=== PATIENT | female | born 1950 | race Caucasian/White ===

== ENCOUNTER 2017-12-11 04:14 | Inpatient (IN) | payer MEDICARE, BC ==
[2017-12-11] MEDS ORDERED: NS 0.9% 1000 ML* 1,000 ML IV ONE (04:33)
[2017-12-11] MEDS ORDERED: Ondansetron INJ* 2 MG/ML VIAL IV ONE (04:37)
[2017-12-11] MEDS ORDERED: fentaNYL* 50 MCG/ML 2 ML VIAL (100 MCG VIAL) IV SLOW PU ONE (04:37)
[2017-12-11] MEDS ORDERED: Ketorolac INJ* 30 MG/ML 1 ML VIAL IV PUSH ONE (04:37)
[2017-12-11] MEDS ORDERED: Albuterol/Ipratropium NEB.SOL* Albuterol 2.5 MG/Ipratropium 0.5 MG 3 ML INH ONE (04:37)
[2017-12-11] MEDS ORDERED: Levofloxacin 750 MG IVPREMIX(* 750 MG/150 ML BAG IVPB ONE (04:54)
[2017-12-11 05:30] LABS: ABS Basophils 0 10^3/ul (0-0.2); ABS Eosinophils 0 10^3/ul (0-0.6); ABS Monocytes 1.2 10^3/ul (0-0.8); ABS Neutrophils 7.6 10^3/ul (1.5-7.7); ABS Nucleated RBC 0 10^3/ul; Eosinophil % 0.4 % (0-6); Hematocrit 35 % (35-47); Hemoglobin 12.6 g/dl (12.0-16.0); Lymphocyte % 10.2 % (25-47); Mean Corpuscular HGB Conc 36 g/dl (31-36); Mean Corpuscular Hemoglobin 34 pg (27-31); Mean Corpuscular Volume 95 fL (80-97); Mean Platelet Volume 8.2 um3 (7.4-10.4); Nucleated Red Blood Cells % 0.1; Platelet Count 194 10^3/ul (150-450); Red Blood Count 3.74 10^6/ul (4.0-5.4); Red Cell Distribution Width 13 % (10.5-15); White Blood Count 9.8 10^3/ul (3.5-10.8)
[2017-12-11 05:36] LABS: INR 0.98 (0.77-1.02)
[2017-12-11 05:42] LABS: EGFR Non-African American 55.6 (>60)
[2017-12-11] MEDS ORDERED: Iodixanol* (CONTRAST) 320 MG/ML 100 ML SDV IV ONE (06:14)
[2017-12-11] MEDS ORDERED: fentaNYL* 50 MCG/ML 2 ML VIAL (100 MCG VIAL) IV SLOW PU PRN (06:36)
--- NOTE | 2017-12-11 06:43 | ED ---
Lauri Smith Rebecca, scribed for Gt Valadez MD on 12/11/17 at 0438 . Back Pain - HPI Summary HPI Summary: Pt is a 67 y/o F BIBA who presents to ED c/o back pain. Sx began 2 days ago ( Thursday morning) upon waking up. Pain was initially costovertebral then yesterday it moved to be below the R breast and today it is in the R side of the back with radiation to the chest. Pain is currently severe, ranked 8/10 and described as sharp. Given ASA en route by EMS. Sx aggravated by inspiration. Additionally c/o SOB. Denies diarrhea, cough, edema, calf pain, abdominal pain, and fever. No recent falls or trauma. Does not usually wear O2. PSHx cholecystectomy and hysterectomy; PMHx diverticulosis. - History of Current Complaint Chief Complaint: EDBackInjuryPain Stated Complaint: CHEST PAIN Hx Obtained From: Patient Onset/Duration: Lasting Days - 2 days, Still Present Onset/Duration: Still Present Back Pain Location: Is Discrete @ - Right side, Radiates To - Chest Severity Currently: Severe Pain Intensity: 8 Pain Scale Used: 0-10 Numeric Character: Sharp Aggravating Symptom(s): Other - Inspiration Associated Signs And Symptoms: Positive: Other - SOB - Allergies/Home Medications Allergies/Adverse Reactions: Allergies Allergy/AdvReac Type Severity Reaction Status Date / Time oxaprozin Allergy "med not Verified 12/11/17 06:37 cleared by kidney" sulfamethoxazole Allergy Rash Verified 12/11/17 04:39 [From Bactrim] trimethoprim [From Bactrim] Allergy Rash Verified 12/11/17 04:39 morphine AdvReac Nausea Verified 12/11/17 06:37 Cheeses AdvReac Intermediate Nasal Uncoded 12/11/17 04:39 Congestion Mushrooms AdvReac Intermediate Nasal Uncoded 12/11/17 04:39 Congestion Home Medications: Home Medications Tramadol HCl [Tramadol HCl] 1 - 2 tab PO Q6H PRN 12/11/17 [History Confirmed ] PMH/Surg Hx/FS Hx/Imm Hx Endocrine/Hematology History: Denies: Hx Diabetes Cardiovascular History: Reports: Hx Hypercholesterolemia, Hx Hypertension Denies: Hx Pacemaker/ICD Respiratory History: Reports: Hx Asthma, Hx Seasonal Allergies, Hx Sleep Apnea - current CPAP user, Other Respiratory Problems/Disorders - Chronic Sinusitis GI History: Reports: Hx Gastroesophageal Reflux Disease History: Denies: Hx Renal Disease Musculoskeletal History: Reports: Hx Osteoporosis Sensory History: Reports: Hx Contacts or Glasses Denies: Hx Hearing Aid Opthamlomology History: Reports: Hx Contacts or Glasses Psychiatric History: Denies: Hx Panic Disorder - Surgical History Surgery Procedure, Year, and Place: Hysterectomy; Right Knee Chondoplasty; Bi- lateral Retinal Tears - LASER SURG; L5-S1 Spinal Fusion; Cholecystectomy; Rectocele Repair; Cystocele Repair; Right & Lt Thumb Arthoplasty; Right Elbow Collateral Ligment - RECON. CATARACT - SINAN EYES Infectious Disease History: No Infectious Disease History: Denies: Traveled Outside the [place] in Last 30 Days - Family History Known Family History: Positive: Cardiac Disease, Hypertension Negative: Diabetes - Social History Alcohol Use: None Substance Use Type: Reports: None Smoking Status (MU): Never Smoked Tobacco Review of Systems Negative: Fever Positive: Shortness Of Breath. Negative: Cough Negative: Abdominal Pain, Diarrhea Positive: Other - Back pain; NEGATIVE: Calf pain. Negative: Edema All Other Systems Reviewed And Are Negative: Yes Physical Exam - Summary Physical Exam Summary: Appearance: mild respiratory distress Skin: warm and dry on the lower extremities, pale and diaphoretic on the upper body, no rashes on the abdomen, lumbar cervical scar Head/face: normal Eyes: EOMI, HERMAN ENT: normal Neck: supple, non-tender Respiratory: crackles about midway up the right base and some crackles in the left base, breath sounds present, hypoxic, mild respiratory distress with shallow, splinted respirations and tachypnea Cardiovascular: RRR, not tachycardic, pulses symmetrical and strong, some tenderness on the anterior and lateral right lower chest wall Abdomen: soft surgical scars from ports, no RLQ pain, pain on the ribs Bowel Sounds: present Musculoskeletal: normal, strength/ROM intact, no CVA tenderness Neuro: normal, sensory motor intact, A&Ox3 Triage Information Reviewed: Yes Vital Signs On Initial Exam: Initial Vitals Temp Pulse Resp BP Pulse Ox 98.7 F 89 20 155/87 84 12/11/17 04:25 12/11/17 04:25 12/11/17 04:25 12/11/17 04:25 12/11/17 04:25 Vital Signs Reviewed: Yes Diagnostics - Vital Signs Vital Signs Temp Pulse Resp BP Pulse Ox 12/11/17 04:25 98.7 F 89 20 155/87 84 - Laboratory Lab Results: Lab Results 12/11/17 12/11/17 12/11/17 Range/Units 04:54 04:54 04:54 WBC 9.8 (3.5-10.8) 10^3/ul RBC 3.74 L (4.0-5.4) 10^6/ul Hgb 12.6 (12.0-16.0) g/dl Hct 35 (35-47) % MCV 95 (80-97) fL MCH 34 H (27-31) pg MCHC 36 (31-36) g/dl RDW 13 (10.5-15) % Plt Count 194 (150-450) 10^3/ul MPV 8.2 (7.4-10.4) um3 Neut % (Auto) 77.3 (38-83) % Lymph % (Auto) 10.2 L (25-47) % [place] % (Auto) 11.9 H (0-7) % Eos % (Auto) 0.4 (0-6) % Baso % (Auto) 0.2 (0-2) % Absolute Neuts (auto) 7.6 (1.5-7.7) 10^3/ul Absolute Lymphs (auto) 1.0 (1.0-4.8) 10^3/ul Absolute Monos (auto) 1.2 H (0-0.8) 10^3/ul Absolute Eos (auto) 0 (0-0.6) 10^3/ul Absolute Basos (auto) 0 (0-0.2) 10^3/ul Absolute Nucleated RBC 0 10^3/ul Nucleated RBC % 0.1 INR (Anticoag Therapy) (0.77-1.02) Sodium 135 L (139-145) mmol/L Potassium 3.7 (3.5-5.0) mmol/L Chloride 100 L (101-111) mmol/L Carbon Dioxide 26 (22-32) mmol/L Anion Gap 9 (2-11) mmol/L BUN 20 (6-24) mg/dL Creatinine 0.99 H (0.51-0.95) mg/dL Est GFR ( Amer) 71.5 (>60) Est GFR (Non-Af Amer) 55.6 (>60) BUN/Creatinine Ratio 20.2 H (8-20) Glucose 165 H (70-100) mg/dL Lactic Acid 0.9 (0.5-2.0) mmol/L Calcium 9.3 (8.6-10.3) mg/dL Total Bilirubin 0.60 (0.2-1.0) mg/dL AST 15 (13-39) U/L ALT 18 (7-52) U/L Alkaline Phosphatase 86 (34-104) U/L Troponin I 0.00 (<0.04) ng/mL C-Reactive Protein 193.78 H (< 5.00) mg/L B-Natriuretic Peptide ( - 100) pg/mL Total Protein 7.1 (6.4-8.9) g/dL Albumin 3.7 (3.2-5.2) g/dL Globulin 3.4 (2-4) g/dL Albumin/Globulin Ratio 1.1 (1-3) 12/11/17 12/11/17 Range/Units 04:54 04:54 WBC (3.5-10.8) 10^3/ul RBC (4.0-5.4) 10^6/ul Hgb (12.0-16.0) g/dl Hct (35-47) % MCV (80-97) fL MCH (27-31) pg MCHC (31-36) g/dl RDW (10.5-15) % Plt Count (150-450) 10^3/ul MPV (7.4-10.4) um3 Neut % (Auto) (38-83) % Lymph % (Auto) (25-47) % [place] % (Auto) (0-7) % Eos % (Auto) (0-6) % Baso % (Auto) (0-2) % Absolute Neuts (auto) (1.5-7.7) 10^3/ul Absolute Lymphs (auto) (1.0-4.8) 10^3/ul Absolute Monos (auto) (0-0.8) 10^3/ul Absolute Eos (auto) (0-0.6) 10^3/ul Absolute Basos (auto) (0-0.2) 10^3/ul Absolute Nucleated RBC 10^3/ul Nucleated RBC % INR (Anticoag Therapy) 0.98 (0.77-1.02) Sodium (139-145) mmol/L Potassium (3.5-5.0) mmol/L Chloride (101-111) mmol/L Carbon Dioxide (22-32) mmol/L Anion Gap (2-11) mmol/L BUN (6-24) mg/dL Creatinine (0.51-0.95) mg/dL Est GFR ( Amer) (>60) Est GFR (Non-Af Amer) (>60) BUN/Creatinine Ratio (8-20) Glucose (70-100) mg/dL Lactic Acid (0.5-2.0) mmol/L Calcium (8.6-10.3) mg/dL Total Bilirubin (0.2-1.0) mg/dL AST (13-39) U/L ALT (7-52) U/L Alkaline Phosphatase (34-104) U/L Troponin I (<0.04) ng/mL C-Reactive Protein (< 5.00) mg/L B-Natriuretic Peptide 50 ( - 100) pg/mL Total Protein (6.4-8.9) g/dL Albumin (3.2-5.2) g/dL Globulin (2-4) g/dL Albumin/Globulin Ratio (1-3) Result Diagrams: 12/11/17 04:54 12/11/17 04:54 Lab Statement: Any lab studies that have been ordered have been reviewed, and results considered in the medical decision making process. - Radiology CXR Xray Interpretation: No Acute Changes - Low volume. Right middle lobe infiltrate. Pending official report. See [email or web address] Radiology Interpretation Completed By: ED Physician - CT Chest/Thorax CTA CT Interpretation: Positive (See Comments) CT Interpretation Completed By: ED Physician - EKG 0450 Cardiac Rate: NL - 83 bpm EKG Rhythm: Sinus Rhythm ST Segment: Normal EKG Interpretation: Normal axis. Normal interval. Re-Evaluation - Re-Evaluation First Eval Re-Evaluation Time: 06:00 Change: Improved Comment: Pt's pain has improved. O2 sats continue to be low (~91% on 3 L O2) Back Pain Course/Dx - Course Course Of Treatment: Patient presents hypoxic with right-sided pleuritic pain. She has crackles in both bases. On the right side her crackles extend up to the mid lung. Chest x-ray was limited due to inspiration however it looks as though there is a right middle lobe infiltrate. This was confirmed with CT scan. There does not appear to be pulmonary embolus but there is extensive pneumonia seen in the area for crackles were heard. She was given IV Levaquin, supported on oxygen due to the hypoxia and hydrated. She is improving with treatment of her discomfort. She will be admitted to the hospital for further. Discussed with hospitalist Dr. Lambert who will be admitting. Assessment/Plan: Allergies noted. CCT is EXCLUSIVE of separately billable procedures. - Diagnoses Differential Diagnosis/HQI/PQRI: Positive: Other - Pneumonia, pulmonary embolism , aortic dissection, empyema Provider Diagnoses: Pleuritic chest pain, Hypoxia, Right lower lobe pneumonia - Provider Notifications Discussed Care Of Patient With: Rafael Lambert Time Discussed With Above Provider: 06:34 Instructed by Provider To: Other - Accepts pt for admission - Critical Care Time Critical Care Time: 30-74 min - 30 minutes Discharge - Sign-Out/Discharge Documenting (check all that apply): Discharge/Admit/Transfer - Admit - Discharge Plan Condition: Guarded Disposition: ADMITTED TO [facility] Referrals: Dilcia Joseph MD [Primary Care Provider] - - Billing Disposition and Condition Condition: GUARDED Disposition: [facility] [place], [place] The documentation as recorded by the Lauri durham Rebecca accurately reflects the service I personally performed and the decisions made by , Gt Valadez MD.
--- NOTE | 2017-12-11 08:01 | RAD ---
INDICATION: Chest pain. COMPARISON: Comparison is made with a prior chest x-ray study from November 01, 2003. TECHNIQUE: 2 portable views of the chest were obtained. FINDINGS: The heart is within normal limits in size. The lungs are underinflated on both views. There are small infiltrates at both lung bases. No pleural effusion or pneumothorax is seen. IMPRESSION: LOW LUNG VOLUMES, SMALL BIBASILAR INFILTRATES.
--- NOTE | 2017-12-11 08:30 | RAD ---
INDICATION: Chest pain and shortness of breath. COMPARISON: Comparison is made with prior chest x-ray study from December 11, 2017. TECHNIQUE: A CT angiogram of the chest was performed with intravenous following intravenous injection of 86 ml of Visipaque 320 nonionic contrast. Contiguous axial sections were obtained from the lung apices through the lung bases. Images were reconstructed in the coronal and sagittal planes. FINDINGS: The images are limited due to motion artifact. There is an intraluminal thrombus in a right upper lobe segmental artery branch. In addition there is nonopacification of multiple basilar segmental arteries which are limited due to motion artifact although consistent with multiple pulmonary emboli. The heart is within normal limits in size. No pericardial effusion is present. The thoracic aorta is normal in caliber and demonstrates homogeneous contrast opacification. There are mildly prominent lymph nodes in the mediastinum which are most enlarged in the azygoesophageal measuring up to 1.1 cm transverse dimension. There are mildly enlarged right hilar lymph nodes measuring up to 1.0 cm in transverse diameter. There is a small focal pleural-based infiltrate in the right middle lobe and dependent bilateral lower lobe infiltrates. There is a small right pleural effusion. Images of the upper abdomen demonstrate no evidence for acute finding. No significant focal osseous abnormality is seen. The results of this examination were discussed with Dr. Lambert. IMPRESSION: 1. MULTIPLE PULMONARY EMBOLI. 2. BILATERAL INFILTRATES AND SMALL RIGHT PLEURAL EFFUSION. 3. MILDLY ENLARGED MEDIASTINAL AND RIGHT HILAR LYMPH NODES.
[2017-12-11] MEDS ORDERED: Enoxaparin(*) 100 MG/ML SYR SUBCUT ONE (09:00)
[2017-12-11 09:38] LABS: Urine Appearance Clear; Urine Blood 2+ (Negative); Urine Color Yellow; Urine Ketones Negative (Negative); Urine Protein Negative (Negative); Urine Specific Gravity > 1.060 (1.010-1.030); Urine Urobilinogen Negative (Negative)
[2017-12-11] MEDS ORDERED: Albuterol HFA INHALER* 8 gm MDI INH PRN (12:16)
[2017-12-11] MEDS ORDERED: Cyclobenzaprine TAB* 10 MG PO PRN (12:18)
[2017-12-11] MEDS ORDERED: traMADol TAB* 50 MG PO PRN (12:18)
[2017-12-11] MEDS ORDERED: Ondansetron INJ* 2 MG/ML VIAL IV PRN (12:41)
[2017-12-11] MEDS: oxyCODONE/Acetamin 5/325 MG* TAB PO PRN ×2 (14:22→20:34)
--- NOTE | 2017-12-11 14:40 | RAD ---
INDICATION: Evaluate for deep venous thrombosis. COMPARISON: There are no prior studies available for comparison. TECHNIQUE: Multiple real-time, color flow and Doppler tracings of both lower extremities were obtained. FINDINGS: The common femoral, femoral, profunda femoral and popliteal veins all demonstrate normal compressibility, augmentation with compression and phasic response with respiration. The posterior tibial and peroneal veins demonstrate normal compressibility and augmentation with compression. IMPRESSION: NO EVIDENCE FOR DEEP VENOUS THROMBOSIS.
[2017-12-11] MEDS: Rivaroxaban TAB(*) 15 MG PO SCH (20:34)
[2017-12-12] MEDS: oxyCODONE/Acetamin 5/325 MG* TAB PO PRN ×2 (06:28→19:52)
[2017-12-12] MEDS: Magnesium Chloride EC TAB* 64 MG PO SCH (08:00)
[2017-12-12] MEDS: Baclofen TAB* 10 MG PO SCH (08:00)
[2017-12-12] MEDS: Levofloxacin TAB* 500 MG PO SCH (08:00)
[2017-12-12] MEDS: Omeprazole CAP* 20 MG PO SCH (08:00)
[2017-12-12] MEDS: Citalopram TAB* 40 MG PO SCH (08:00)
[2017-12-12] MEDS: Losartan TAB* 25 MG PO SCH (08:00)
[2017-12-12] MEDS: Rivaroxaban TAB(*) 15 MG PO SCH ×2 (08:02→19:53)
[2017-12-12] MEDS: Fluticasone NASAL SPRAY 50MCG* 16 gm SPRAY BTL NASAL SCH (08:02)
[2017-12-12] MEDS ORDERED: Senna TAB PO PRN (09:06)
[2017-12-12] MEDS ORDERED: Senna TAB PO ONE (09:06)
[2017-12-12] MEDS: Docusate LIQ* 100 MG/10 ML UDC PO PRN (12:31)
[2017-12-12] MEDS ORDERED: Magnesium CITRATE* 300 ML BTL PO ONE (13:00)
--- NOTE | 2017-12-12 17:28 | PN ---
Subjective Date of Service: 12/12/17 Interval History: . Long discussion today with significant other of patient and the patient about the consideration of coumadin vs xarelto as the agent of choice for VTE/PE. I informed patient of the risks and benefits of each agent, including the inability to reverse Xarelto vs its lower bleeding rate. Patient is going to further consider this. In terms of her symptoms, she still has pleuritic chest pain and the percocet certainly helps. started laxative regimen for constipating effects of opiates. patient still using supplemental oxygen...we discussed possible discharge home tomorrow, though she is reticent based on her pain level. walking in hallway today is a goal. . Family History: Unchanged from Admission Social History: Unchanged from Admission Past Medical History: Unchanged from Admission Objective Active Medications: Albuterol (Ventolin Hfa Inhaler*) 2 puff INH QID PRN PRN Reason: WHEEZING Baclofen (Lioresal Tab*) [address] [facility] Last Admin: 12/12/17 08:00 Dose: 20 mg Citalopram Hydrobromide (Celexa Tab*) [address] [facility] Last Admin: 12/12/17 08:00 Dose: 40 mg Cyclobenzaprine HCl (Flexeril Tab*) 5 mg PO TID PRN PRN Reason: SPASMS Last Admin: 12/11/17 14:23 Dose: 5 mg Docusate Sodium (Colace Liq*) 100 mg PO BID PRN PRN Reason: CONSTIPATION Last Admin: 12/12/17 12:31 Dose: 100 mg Fentanyl Citrate (Fentanyl*) 25 mcg IV SLOW PU Q4H PRN PRN Reason: PAIN Fluticasone Propionate (Flonase Nasal [place] 50mcg*) [address] [facility] Last Admin: 12/12/17 08:02 Dose: 2 spray Levofloxacin (Levaquin Tab*) [address] [facility] Last Admin: 12/12/17 08:00 Dose: 500 mg Losartan Potassium (Cozaar Tab*) [address] [facility] Last Admin: 12/12/17 08:00 Dose: 25 mg Magnesium Chloride (Slow Mag Ec Tab*) [address] [facility] Last Admin: 12/12/17 08:00 Dose: 64 mg Mometasone Furoate (Asmanex 220 Mcg Mdi *) [address] [facility] Omeprazole (Prilosec Cap*) 20 mg PO DAILY@0730 [facility] Last Admin: 12/12/17 08:00 Dose: 20 mg Ondansetron HCl (Zofran Inj*) 4 mg IV Q4H PRN PRN Reason: NAUSEA/VOMITING Oxycodone/Acetaminophen (Percocet 5/325 Tab*) 1 tab PO Q4H PRN PRN Reason: PAIN Last Admin: 12/12/17 06:28 Dose: 1 tab Rivaroxaban (Xarelto(*)) [address] [facility] Last Admin: 12/12/17 08:02 Dose: 15 mg Senna (Senokot Tab*) 2 tab PO BEDTIME PRN PRN Reason: CONSTIPATION Tramadol HCl (Ultram*) 50 mg PO Q6H PRN PRN Reason: PAIN Vital Signs - 8 hr 12/12/17 12/12/17 12/12/17 11:03 14:12 15:20 Temperature 97.9 F 98.5 F 97.9 F Pulse Rate 77 78 82 Respiratory 16 16 18 Rate Blood Pressure 110/59 119/52 128/60 (mmHg) O2 Sat by Pulse 93 93 94 Oximetry 12/12/17 15:55 Temperature Pulse Rate Respiratory Rate Blood Pressure (mmHg) O2 Sat by Pulse 92 Oximetry Oxygen Devices in Use Now: Nasal Cannula Appearance: NAD at rest. pain with deep breathing. Eyes: No Scleral Icterus Ears/Nose/Mouth/Throat: NL Teeth, Lips, Gums, Clear Oropharnyx Neck: NL Appearance and Movements; NL JVP Respiratory: Symmetrical Chest Expansion and Respiratory Effort Cardiovascular: NL Sounds; No Murmurs; No JVD Abdominal: NL Sounds; No Tenderness; No Distention Lymphatic: No Cervical Adenopathy Extremities: No Edema Skin: No Rash or Ulcers Neurological: Alert and Oriented x 3 Lines/Tubes/Other Access: Clean, Dry and Intact Peripheral IV Nutrition: Taking PO's Result Diagrams: 12/11/17 04:54 12/11/17 04:54 Additional Lab and Data: . Microbiology and Other Data: Microbiology 12/11/17 08:30 Urine Culture - Final Urine Assess/Plan/Problems-Billing . Assessment: 67 yo female with multiple bilateral pulmonary emboli after a radiofrequency ablation on 11/26/2017. Pleuritic chest pain started wednesday acutely. CT Chest w/ contrast showed multiple emboli Lower extremity ultrasound did not show DVT. Echo pending. . - Patient Problems (1) Pulmonary embolism, bilateral Current Visit: Yes Status: Acute Priority: High Code(s): I26.99 - OTHER PULMONARY EMBOLISM WITHOUT ACUTE COR PULMONALE Comment: - anticoagulation with Xarelto - supplemental oxygen - pain control...prn percocet or fentanyl - check TTE for R heart strain (2) Sleep apnea Current Visit: No Status: Chronic Priority: High Code(s): G47.30 - SLEEP APNEA, UNSPECIFIED Comment: - CPAP user at home - ordered for tonight (3) Pneumonia Current Visit: Yes Status: Acute Priority: High Code(s): J18.9 - PNEUMONIA , UNSPECIFIED ORGANISM Comment: - levofloxacin - could be pulmnary infarct vs pneumonia infiltrate - empiric antibiotics ; levo gives atypical and typical bacterial coverage. - albuterol prn SOB.
[2017-12-12] MEDS: Mometasone 220 MCG MDI INH SCH (20:16)
--- NOTE | 2017-12-12 21:22 | HP ---
CC: Dilcia Joseph MD ADMISSION HISTORY AND PHYSICAL: DATE OF ADMISSION: 12/11/17 TIME OF MY EVALUATION: 9:00 a.m. PRIMARY CARE PROVIDER: Dilcia Joseph MD CHIEF COMPLAINT: Chest pain/back pain that is worse with breathing. HISTORY OF PRESENT ILLNESS: Ms. Chamorro is a pleasant and articulate 67-year- old female, who was brought to the emergency room with a complaint of back and chest pain. The pain started 2 days ago, on Thursday morning when she awoke with costovertebral pain below her right breast. 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 The patient states that it is in the right side of her back with radiation to her chest. The pain is severe...rated as severe as 8/10, and described as sharp. She was given aspirin en route by EMS. It is worse with breathing, clearly pleuritic in nature. The patient does complain of shortness of breath. She does have hypoxia and has required supplemental oxygen. She has a limited past medical history, admitted several years ago for an episode of diverticulosis and a workup did not reveal the etiology of her GI bleeding. More recently, she had a radiofrequency ablation on 11/26/17 in [place]. The patient tolerated the procedure without difficulty, but she has been fairly immobile in bed as a result. She also reported a very long car ride in the last month. Shortly after my evaluation of the patient, I received a call from Radiology where the CTA chest showed multiple bilateral pulmonary emboli. The patient was anticoagulated initially with subcu Lovenox, and later Xarelto. She is being treated for analgesia with IV opiates and in particular fentanyl for a stated MORPHINE allergy. The patient is also being treated with IV antibiotics, specifically Levaquin. the CTA also showed bibasilar infiltrates and a R pleural effusion. The patient is being admitted to the hospitalist service for further evaluation of her pulmonary emboli, anticoagulation initiation, monitoring of her hypoxia and treatment of pain. PAST MEDICAL HISTORY: 1. Diverticular disease of colon. 2. Asthma. 3. Obstructive sleep apnea - on CPAP at home. 4. Benign essential hypertension. OUTPATIENT MEDICATIONS: 1. Azelastine nasal spray 0.15% (Astepro 1 spray nasally twice daily). 2. Cyclobenzaprine 5 to 10 mg by mouth 3 times daily. 3. Fexofenadine/Soraya 180 mg strength 1 tablet by mouth once daily. 4. Singulair 10 mg by mouth daily. 5. Multivitamin 1 tab by mouth once daily. 6. Tramadol 50 mg tablets 1 to 2 tabs by mouth every 6 hours p.r.n. pain. 7. Albuterol HFA inhaler 2 puffs inhaled 4 times daily. 8. Baclofen 10 mg tabs 2 tabs by mouth daily. 9. Citalopram 40 mg by mouth daily (Celexa). 10. Fluticasone HFA inhaler 220 mcg strength 1 puff inhaled daily. 11. Fluticasone nasal spray 50 mcg strength 2 sprays nasally daily. 12. Losartan 25 mg tabs 1 tab by mouth once daily. 13. Magnesium chloride 1 tab by mouth daily (no dose specified). 14. Omeprazole 20 mg by mouth daily. ALLERGIES: Multiples and include OXAPROZIN, TRIMETHOPRIM/SULFAMETHOXAZOLE( BACTRIM), MORPHINE, CHEESES, and MUSHROOMS. FAMILY HISTORY: Reviewed, but noncontributory based on the current presentation. SOCIAL HISTORY: The patient has a partner and is listed as the emergency contact in the EMR, her name is Татьяна Leal. Татьяна's telephone number is . The patient is a nonsmoker, nondrinker, no illicit drug use. Most recent colonoscopy screening, January 2011, done for bleeding and was normal. Mammogram screening, 08/15/16 - reportedly normal. PHYSICAL EXAMINATION ON ADMISSION: GENERAL APPEARANCE: Normal appearing elderly woman, appears stated age, in no apparent distress. Awake, alert, and oriented x3. Answers questions appropriately. VITAL SIGNS: Temperature 97.9 Fahrenheit, pulse 77, respirations 16, oxygen saturation 93% on 4 L, blood pressure 110/59. HEENT: Oropharynx is clear. Mucous membranes are moist. NECK: Supple. No elevated JVD. CHEST: Clear breath sounds anteriorly and posteriorly, although she does experience pain taking deep breath and she is tender to the right side at the costovertebral angle. HEART: Regular rate and rhythm. No murmurs appreciated. ABDOMEN: Soft and nontender, obese. EXTREMITIES: Without clubbing, cyanosis, or edema. NEURO: Normal sensory and motor components. Normal reflexes. PSYCH: Normal affect. No acute anxiety or depression and very good medical collections. LYMPH: No adenopathy appreciated. SKIN: Dry and intact. No rashes, lesions, or breakdown. ADMISSION DATA: White blood cell count 9.8, hemoglobin 12.6, platelets 194, 000. INR is 0.98. Sodium borderline low 135, potassium 3.7, chloride 100, bicarb 26, anion gap 9, BUN 20, creatinine 0.99, glucose 165, lactic acid 0.9 ( normal). AST and ALT are 15 and 18, respectively with a normal alk phos at 86. CRP elevated at 193. Total protein and albumin 7.1 and 3.7, respectively. Urinalysis is abnormal with 2+ white blood cells and 2+ leukocyte esterase. CTA of the chest/thorax at 05:51 hours on 12/11/17, shows multiple bilateral emboli, bilateral infiltrates and small right pleural effusion and mildly enlarged mediastinal and right hilar lymph nodes. IMPRESSION: Ms. Chamorro is a 67-year-old female, recently undergoing a radiofrequency ablation in the outpatient setting with some immobility in the period thereafter, who presents with pleuritic chest pain developing 2 days prior to admission and progressing in severity with the patient presenting now on CT chest showing multiple bilateral pulmonary emboli with hypoxia, concurrently abnormal urinary tract infection which would be dually treated along with the pneumonia with the Levaquin that was started by the ED staff. PLAN BY MEDICAL PROBLEM: 1. Multiple bilateral pulmonary emboli with chest pain and hypoxia. I will start with subcu Lovenox. I note the patient has a history of unexplained GI bleeding, so I would like to certainly observe her in the hospital not only for possibly bleeding as the complication of anticoagulation, but also because she is hypoxic and she is having substantial pain. The patient will be treated with IV fentanyl on a p.r.n. basis and if she does not need that level of pain control, by oral Percocet. Supplemental oxygen as the patient requires. I am going to consider this a provoked embolism given her recent outpatient procedure and immobility. Though the adenopathy is a bit concerning, I know she is current on her colon and breast cancer screening, but there is always a potential for malignancy or another cause of a hypercoagulable state. it might be worth a diagnostic thoracentesis if she does not promptly resolve with the antibiotic This will be followed closely. I might consider involving Hematology/Oncology to direct a cancer workup. We will start with requesting an LDH for evidence of tissue turnover. 2. Pneumonia. This might have been an initial problem and actually caused the pulmonary emboli secondary to inflammation. I will treat with Levaquin as already started by the emergency room. Blood cultures were drawn and are pending. The patient is not septic at this time. 3. Urinary tract infection will be dually treated with Levaquin. 4. We will continue medication reconciliation and treat other outpatient medical problems including hypertension with losartan. 5. Allergies - continue fexofenadine. 6. Depression. Continue citalopram. 7. Gastroesophageal reflux disease. Continue omeprazole. 8. Asthma. Continue ProAir and Flovent. 9. Full code. TIME SPENT: Total time taken to admit Ms. Chamorro was 75 minutes, greater than half that time was spent going over the history and physical examination and face-to- face with the patient. [id number]/[facility] #: [id number] MTDD
[2017-12-13 07:27] LABS: ABS Basophils 0.1 10^3/ul (0-0.2); ABS Eosinophils 0.3 10^3/ul (0-0.6); ABS Lymphocytes 1.1 10^3/ul (1.0-4.8); ABS Monocytes 0.7 10^3/ul (0-0.8); ABS Neutrophils 3.4 10^3/ul (1.5-7.7); ABS Nucleated RBC 0 10^3/ul; Eosinophil % 5.4 % (0-6); Hematocrit 32 % (35-47); Hemoglobin 11.4 g/dl (12.0-16.0); Lymphocyte % 19.6 % (25-47); Mean Corpuscular HGB Conc 36 g/dl (31-36); Mean Corpuscular Hemoglobin 34 pg (27-31); Mean Corpuscular Volume 95 fL (80-97); Mean Platelet Volume 7.4 um3 (7.4-10.4); Nucleated Red Blood Cells % 0; Platelet Count 220 10^3/ul (150-450); Red Blood Count 3.38 10^6/ul (4.0-5.4); Red Cell Distribution Width 13 % (10.5-15); White Blood Count 5.6 10^3/ul (3.5-10.8)
[2017-12-13 07:45] LABS: EGFR Non-African American 58.3 (>60)
[2017-12-13] MEDS: Docusate LIQ* 100 MG/10 ML UDC PO PRN ×2 (08:19→08:20)
[2017-12-13] MEDS: Omeprazole CAP* 20 MG PO SCH (08:20)
[2017-12-13] MEDS: Levofloxacin TAB* 500 MG PO SCH (08:20)
[2017-12-13] MEDS: oxyCODONE/Acetamin 5/325 MG* TAB PO PRN ×2 (08:20→19:29)
[2017-12-13] MEDS: Magnesium Chloride EC TAB* 64 MG PO SCH (08:20)
[2017-12-13] MEDS: Rivaroxaban TAB(*) 15 MG PO SCH ×2 (08:20→19:30)
[2017-12-13] MEDS: Citalopram TAB* 40 MG PO SCH (08:20)
[2017-12-13] MEDS: Baclofen TAB* 10 MG PO SCH (08:20)
[2017-12-13] MEDS: Losartan TAB* 25 MG PO SCH (08:20)
[2017-12-13] MEDS: Fluticasone NASAL SPRAY 50MCG* 16 gm SPRAY BTL NASAL SCH (08:22)
--- NOTE | 2017-12-13 18:27 | PN ---
Subjective Date of Service: 12/13/17 Interval History: . walking in hallway still gets short of breath and needs oxygen to sustain still painful respirations that are limited, but less than yesterday she expects to go home tomorrow. using percocet more than fentanyl. + BM overnight --> continuing laxative regimen. . Family History: Unchanged from Admission Social History: Unchanged from Admission Past Medical History: Unchanged from Admission Objective Active Medications: . Albuterol (Ventolin Hfa Inhaler*) 2 puff INH QID PRN PRN Reason: WHEEZING Baclofen (Lioresal Tab*) 20 mg PO DAILY [facility] Last Admin: 12/13/17 08:20 Dose: 20 mg Citalopram Hydrobromide (Celexa Tab*) 40 mg PO DAILY [facility] Last Admin: 12/13/17 08:20 Dose: 40 mg Cyclobenzaprine HCl (Flexeril Tab*) 5 mg PO TID PRN PRN Reason: SPASMS Last Admin: 12/11/17 14:23 Dose: 5 mg Docusate Sodium (Colace Liq*) 100 mg PO BID PRN PRN Reason: CONSTIPATION Last Admin: 12/13/17 08:20 Dose: 100 mg Fentanyl Citrate (Fentanyl*) 25 mcg IV SLOW PU Q4H PRN PRN Reason: PAIN Fluticasone Propionate (Flonase Nasal [place] 50mcg*) 2 spray NASAL DAILY [facility] Last Admin: 12/13/17 08:22 Dose: 2 spray Levofloxacin (Levaquin Tab*) 500 mg PO Q24H [facility] Last Admin: 12/13/17 08:20 Dose: 500 mg Losartan Potassium (Cozaar Tab*) 25 mg PO DAILY [facility] Last Admin: 12/13/17 08:20 Dose: 25 mg Magnesium Chloride (Slow Mag Ec Tab*) 64 mg PO DAILY [facility] Last Admin: 12/13/17 08:20 Dose: 64 mg Mometasone Furoate (Asmanex 220 Mcg Mdi *) 1 puff INH QPM [facility] Last Admin: 12/12/17 20:16 Dose: 1 puff Omeprazole (Prilosec Cap*) 20 mg PO DAILY@0730 [facility] Last Admin: 12/13/17 08:20 Dose: 20 mg Ondansetron HCl (Zofran Inj*) 4 mg IV Q4H PRN PRN Reason: NAUSEA/VOMITING Oxycodone/Acetaminophen (Percocet 5/325 Tab*) 1 tab PO Q4H PRN PRN Reason: PAIN Last Admin: 12/13/17 08:20 Dose: 1 tab Rivaroxaban (Xarelto(*)) 15 mg PO BID [facility] Last Admin: 12/13/17 08:20 Dose: 15 mg Senna (Senokot Tab*) 2 tab PO BEDTIME PRN PRN Reason: CONSTIPATION Last Admin: 12/12/17 20:02 Dose: 2 tab Tramadol HCl (Ultram*) 50 mg PO Q6H PRN PRN Reason: PAIN . Vital Signs - 8 hr 12/13/17 12/13/17 11:53 15:23 Temperature 98.2 F 98.2 F Pulse Rate 72 78 Respiratory 14 20 Rate Blood Pressure 127/56 115/59 (mmHg) O2 Sat by Pulse 98 98 Oximetry Oxygen Devices in Use Now: Nasal Cannula Appearance: NAD Eyes: No Scleral Icterus Ears/Nose/Mouth/Throat: Clear Oropharnyx Neck: NL Appearance and Movements; NL JVP Respiratory: Symmetrical Chest Expansion and Respiratory Effort Cardiovascular: NL Sounds; No Murmurs; No JVD Abdominal: NL Sounds; No Tenderness; No Distention Lymphatic: No Cervical Adenopathy Extremities: No Edema Skin: No Rash or Ulcers Neurological: Alert and Oriented x 3 Lines/Tubes/Other Access: Clean, Dry and Intact Peripheral IV Nutrition: Taking PO's Result Diagrams: 12/13/17 07:17 12/13/17 07:15 Additional Lab and Data: . Microbiology and Other Data: Microbiology 12/11/17 08:30 Urine Culture - Final Urine Assess/Plan/Problems-Billing . Assessment: 67 yo female with multiple bilateral pulmonary emboli after a radio-frequency ablation on 11/26/2017. Pleuritic chest pain started Thursday acutely. CT Chest w/ contrast showed multiple emboli Lower extremity ultrasound did not show DVT. Echo still pending. . - Patient Problems (1) Pulmonary embolism, bilateral Current Visit: Yes Status: Acute Priority: High Code(s): I26.99 - OTHER PULMONARY EMBOLISM WITHOUT ACUTE COR PULMONALE Comment: - anticoagulation with Xarelto - supplemental oxygen - pain control...prn percocet or fentanyl - check TTE for R heart strain (2) Sleep apnea Current Visit: No Status: Chronic Priority: High Code(s): G47.30 - SLEEP APNEA, UNSPECIFIED Comment: - CPAP user at home - ordered at night in hospital (3) Pneumonia Current Visit: Yes Status: Acute Priority: High Code(s): J18.9 - PNEUMONIA , UNSPECIFIED ORGANISM Comment: - levofloxacin - could be pulmnary infarct vs pneumonia infiltrate - empiric antibiotics ; levo gives atypical and typical bacterial coverage. - albuterol prn SOB.
--- NOTE | 2017-12-13 20:01 | ECHO ---
Patient: ТАТЬЯНА ELIZALDE [facility] Rec#: [id number] : 1950 Date: 12/13/2017 Age: 67y Height: 170.18 cm / 67.0 in Weight: 95.25 kg / 209.9 lbs Sex: F BSA: 2.06 Room#: [facility] Admit Date#: 12/11/2017 Type: Inpatient Referring: Rafael Lambert MD Reading: Aristides Jane MD Industrial Seamstress: Татьяна Childs RADHA CC: Dilcia Joseph MD Transthoracic Echocardiogram Indication: Pulmonary Embolism BP: 130/59 HR: 73 Rhythm: NSR Findings History: Recent radio frequency abaltion to her back, asthma, NAOMI with CPAP,HTN, currently with PE. Technical Comments: The study quality is good. Completed at 1200. Left Ventricle: The left ventricular chamber size is normal. Global left ventricular wall motion and contractility are within normal limits. There is normal left ventricular systolic function. The estimated ejection fraction is 50-55%. Abnormal left ventricular diastolic function is observed. Left Atrium: The left atrial chamber size is normal. Right Ventricle: The right ventricular cavity size is normal. The right ventricular global systolic function is normal. Right Atrium: The right atrial cavity size is normal. Aortic Valve: The aortic valve is trileaflet. There is no evidence of aortic valve thickening. There is no evidence of aortic regurgitation. There is no evidence of aortic stenosis. Mitral Valve: The mitral valve leaflets appear normal. There is no evidence of mitral regurgitation. There is no evidence of mitral stenosis. Tricuspid Valve: The tricuspid valve leaflets are normal. There is trace tricuspid regurgitation. There is no tricuspid stenosis. Pulmonic Valve: The pulmonic valve appears normal. There is trace to mild pulmonic regurgitation. There is no pulmonic stenosis. Pericardium: A pericardial fat pad is visualized. Aorta: There is no dilatation of the ascending aorta. There is no dilatation of the aortic arch. There is no dilation of the aortic root. Pulmonary Artery: The main pulmonary artery appears normal. Venous: The venous system is not well visualized. Summary: There was not any prior study for comparison. Conclusions The left ventricular chamber size is normal. There is normal left ventricular systolic function. The estimated ejection fraction is 50-55%. Abnormal left ventricular diastolic function is observed. There is trace tricuspid regurgitation. There is trace to mild pulmonic regurgitation. Measurements Name Value Normal Range RVIDd (AP) 2D 3.2 cm (0.9 - 2.6) RVDdMajor (2D) 3 cm (2.2 - 4.4) RAd ISD 4CH 4.6 cm (3.4 - 4.9) RA (A4C)W 3.8 cm (2.9 - 4.6) IVSd (2D) 1 cm (0.6 - 1) LVPWd (2D) 0.8 cm (0.6 - 1) LVIDd (2D) 4.9 cm (3.6 - 5.4) LVIDs (2D) 2 cm - LV FS (2D) 55 % (25 - 45) Aortic Annulus 2 cm (1.4 - 2.6) Ao root diameter (2D) 3.4 cm (2.1 - 3.5) Ascending Ao 3.1 cm (2.1 - 3.4) Aortic arch 2.4 cm (1.8 - 3.4) Descending Ao 0.8 cm - LA dimension (AP) 2D 3.8 cm (2.3 - 3.8) LAd ISD 4CH 5.6 cm (2.9 - 5.3) LA ISD 4CH W 3.8 cm (2.5 - 4.5) Name Value Normal Range LA ESV SP 4CH (A/L) 63 ml - LA ESV SP 2CH (A/L) 41 ml - LA ESV BP (A/L) 52 ml - LA ESV BP (A/L) index 25.32 ml/m2 - LA ESV SP 4CH (MOD) 55 ml - LA ESV SP 2CH (MOD) 39 ml - Name Value Normal Range MV E-wave Vmax 0.5 m/sec - MV deceleration time 228 msec - MV A-wave Vmax 0.7 m/sec - MV E:A ratio 0.8 ratio - LV septal e' Vmax 0.07 m/sec - LV lateral e' Vmax 0.08 m/sec - LV E:e' septal ratio 7.14 ratio - LV E:e' lateral ratio 6.25 ratio - Name Value Normal Range AV Vmax 1.5 m/sec - AV VTI 30.1 cm - AV peak gradient 9.11 mmHg - AV mean gradient 4.35 mmHg - LVOT Vmax 1 m/sec - LVOT VTI 20.5 cm - LVOT peak gradient 3.97 mmHg - LVOT mean gradient 1.86 mmHg - Name Value Normal Range TR Vmax 2.1 m/sec - TR peak gradient 18 mmHg - Name Value Normal Range PV Vmax 0.9 m/sec - PV peak gradient 3.25 mmHg -
[2017-12-13] MEDS: Mometasone 220 MCG MDI INH SCH (21:39)
[2017-12-14] MEDS: Citalopram TAB* 40 MG PO SCH (08:23)
[2017-12-14] MEDS: Magnesium Chloride EC TAB* 64 MG PO SCH (08:23)
[2017-12-14] MEDS: Omeprazole CAP* 20 MG PO SCH (08:23)
[2017-12-14] MEDS: Levofloxacin TAB* 500 MG PO SCH (08:24)
[2017-12-14] MEDS: Rivaroxaban TAB(*) 15 MG PO SCH (08:24)
[2017-12-14] MEDS: Baclofen TAB* 10 MG PO SCH (08:25)
[2017-12-14] MEDS: Losartan TAB* 25 MG PO SCH (08:25)
[2017-12-14] MEDS: Fluticasone NASAL SPRAY 50MCG* 16 gm SPRAY BTL NASAL SCH (08:26)
--- NOTE | 2017-12-14 15:11 | PN ---
Subjective Date of Service: 12/14/17 Interval History: Patient reports she feels better today and hopes to go home. She has been ambulating around unit with 3l NC and reports no SOB unless she takes the oxygen off. Reports occasional unproductive dry cough. No fevers or chills. Reports some right sided pleurtic pain but reports this has improved since admission. Denies CP. Reports good appetite. Family History: Unchanged from Admission Social History: Unchanged from Admission Past Medical History: Unchanged from Admission Objective Active Medications: Albuterol (Ventolin Hfa Inhaler*) 2 puff INH QID PRN PRN Reason: WHEEZING Baclofen (Lioresal Tab*) 20 mg PO DAILY [facility] Last Admin: 12/14/17 08:25 Dose: 20 mg Citalopram Hydrobromide (Celexa Tab*) 40 mg PO DAILY [facility] Last Admin: 12/14/17 08:23 Dose: 40 mg Cyclobenzaprine HCl (Flexeril Tab*) 5 mg PO TID PRN PRN Reason: SPASMS Last Admin: 12/11/17 14:23 Dose: 5 mg Docusate Sodium (Colace Liq*) 100 mg PO BID PRN PRN Reason: CONSTIPATION Last Admin: 12/13/17 08:20 Dose: 100 mg Fentanyl Citrate (Fentanyl*) 25 mcg IV SLOW PU Q4H PRN PRN Reason: PAIN Fluticasone Propionate (Flonase Nasal [place] 50mcg*) 2 spray NASAL DAILY [facility] Last Admin: 12/14/17 08:26 Dose: 2 spray Levofloxacin (Levaquin Tab*) 500 mg PO Q24H [facility] Last Admin: 12/14/17 08:24 Dose: 500 mg Losartan Potassium (Cozaar Tab*) 25 mg PO DAILY [facility] Last Admin: 12/14/17 08:25 Dose: 25 mg Magnesium Chloride (Slow Mag Ec Tab*) 64 mg PO DAILY [facility] Last Admin: 12/14/17 08:23 Dose: 64 mg Mometasone Furoate (Asmanex 220 Mcg Mdi *) 1 puff INH QPM [facility] Last Admin: 12/13/17 21:39 Dose: 1 puff Omeprazole (Prilosec Cap*) 20 mg PO DAILY@0730 [facility] Last Admin: 12/14/17 08:23 Dose: 20 mg Ondansetron HCl (Zofran Inj*) 4 mg IV Q4H PRN PRN Reason: NAUSEA/VOMITING Oxycodone/Acetaminophen (Percocet 5/325 Tab*) 1 tab PO Q4H PRN PRN Reason: PAIN Last Admin: 12/13/17 19:29 Dose: 1 tab Rivaroxaban (Xarelto(*)) 15 mg PO BID [facility] Last Admin: 12/14/17 08:24 Dose: 15 mg Senna (Senokot Tab*) 2 tab PO BEDTIME PRN PRN Reason: CONSTIPATION Last Admin: 12/12/17 20:02 Dose: 2 tab Tramadol HCl (Ultram*) 50 mg PO Q6H PRN PRN Reason: PAIN Last Admin: 12/14/17 12:17 Dose: 50 mg Vital Signs - 8 hr 12/14/17 12/14/17 12/14/17 07:47 08:00 10:07 Temperature 98.0 F Pulse Rate 73 Respiratory 14 18 Rate Blood Pressure 111/59 (mmHg) O2 Sat by Pulse 98 86 Oximetry 12/14/17 12/14/17 12/14/17 11:07 11:52 12:17 Temperature 98.3 F Pulse Rate 76 Respiratory 16 16 Rate Blood Pressure 123/62 (mmHg) O2 Sat by Pulse 96 Oximetry Oxygen Devices in Use Now: Nasal Cannula - 3L NC, High Flow Nasal Cannula Appearance: 67 yo female laying in bed A+O x3 in NAD Eyes: No Scleral Icterus, PERRLA Ears/Nose/Mouth/Throat: Mucous Membranes Moist Neck: NL Appearance and Movements; NL JVP Respiratory: Symmetrical Chest Expansion and Respiratory Effort, Clear to Auscultation Cardiovascular: NL Sounds; No Murmurs; No JVD, RRR, No Edema Abdominal: NL Sounds; No Tenderness; No Distention Extremities: No Edema, No Clubbing, Cyanosis Skin: No Rash or Ulcers, No Nodules or Sclerosis Neurological: Alert and Oriented x 3, NL Sensation, NL Gait, NL Muscle Strength and Tone Lines/Tubes/Other Access: Clean, Dry and Intact Peripheral IV Nutrition: Taking PO's Result Diagrams: 12/13/17 07:17 12/14/17 15:35 Additional Lab and Data: . Microbiology and Other Data: Microbiology 12/11/17 08:30 Urine Culture - Final Urine Assess/Plan/Problems-Billing . Assessment: 67 yo female with multiple bilateral pulmonary emboli after a radio-frequency ablation on 11/26/2017. Pleuritic chest pain started Thursday acutely. CT Chest w/ contrast showed multiple emboli Lower extremity ultrasound did not show DVT. - Patient Problems (1) Pulmonary embolism, bilateral Comment: - anticoagulation with Xarelto - 15 mg BID x 21 days, then 20 mg daily- (01/02) - supplemental oxygen - 3L NC -send home on O2 - pain control...prn percocet - TTE normal - no cor pulmonal (2) Pneumonia Comment: - levofloxacin - - could be pulmnary infarct vs pneumonia infiltrate - empiric antibiotics ; levo gives atypical and typical bacterial coverage. - albuterol prn SOB (3) Sleep apnea Comment: - CPAP user at home - ordered at night in hospital (4) DVT prophylaxis Comment: xarelto Status and Disposition: inpatient with PEs. Plan for DC home today
[2017-12-14 15:54] VITALS: BP 120/55
[2017-12-14 16:15] LABS: EGFR Non-African American 48.2 (>60)
--- NOTE | 2017-12-14 23:20 | DS ---
CC: Dilcia Joseph MD * DISCHARGE SUMMARY: DATE OF ADMISSION: 12/11/17 DATE OF DISCHARGE: 12/14/17 HOSPITAL STATUS: Inpatient. ATTENDING PHYSICIAN: Dr. Hasasn * (report dictated by Keegan Melo NP). PRIMARY CARE PROVIDER: Dilcia Joseph MD PRIMARY DIAGNOSES: 1. Multiple pulmonary emboli. 2. Small right pleural effusion. Possible pulmonary infarct versus pneumonic infiltrate. 3. Recent cardiac ablation. SECONDARY DIAGNOSES: 1. Sleep apnea. 2. Asthma. 3. Hypertension. 4. Diverticular disease of the colon. HISTORY OF PRESENT ILLNESS AND HOSPITAL COURSE: Please see history and physical by Dr. Lambert on 12/11/17 for full admission details, but in summary this is a 67- year-old female, who presented to the emergency department on 12/11/17 with complaint of back and chest pain who underwent a CTA of the chest, was found to have multiple pulmonary emboli. Recently, she underwent a radiofrequency cardiac ablation on 11/26/17 in [place] and tolerated the procedure without difficulty. She reports she has been fairly immobile in bed, as well as she was not started on anticoagulation after the procedure. She recently also reported taking a long car ride in the past month. The patient was initially anticoagulated with subcu Lovenox and started on Xarelto 15 mg p.o. b.i.d. on the evening of 12/11/17. The patient underwent a transthoracic echocardiogram, which shows no cor pulmonale and conclusions read "the left ventricular chamber size is normal. There is normal left ventricular systolic function. The estimated ejection fraction is 50% to 55%. Abnormal left ventricular systolic function is observed. There is trace tricuspid regurgitation. There is trace to mild pulmonic regurgitation. The right ventricular cavity size is normal. The right ventricular global systolic function is normal." The patient also underwent a venous Doppler study for bilateral lower extremities, which was negative for deep vein thrombosis. The patient has been ambulating around the unit. She has been requiring 2 to 3 L of oxygen and will be sent home with oxygen through [facility] which she will wean off as tolerated. She was encouraged to buy a pulse oximetry to monitor her O2 levels. The patient denies shortness of breath or chest pain. She reports her right pleuritic pain she was initially feeling prior to hospitalization has greatly improved and has been treated with Percocet p.r.n., which she will be discharged home on. The patient will have close followup with her primary care physician, Dr. Joseph. DISCHARGE MEDICATIONS: 1. Flovent HFA 220 mcg 1 puff INH daily. 2. Omeprazole 20 mg p.o. daily. 3. Multivitamin 1 capsule daily. 4. Singulair 10 mg p.o. daily. 5. Losartan 25 mg p.o. daily. 6. Flonase 50 mcg 2 sprays nasal daily. 7. Soraya 180 mg p.o. daily. 8. Celexa 40 mg p.o. daily. 9. Albuterol HFA inhaler 2 puffs INH 4 times a day p.r.n. 10. Percocet 5/325 mg 1 tab p.o. q.4-6 hours p.r.n. pain. 11. Xarelto 15 mg p.o. b.i.d. for a total of 21 days, then 20 mg p.o. daily. Please note the Xarelto was initially started on the evening of 12/11/17. DISCHARGE PLAN: Follow up with primary care provider, Dr. Joseph within 2 to 4 days. Worsening signs and symptoms were discussed with the patient and return to the emergency department with any concerning symptoms. TIME SPENT: Approximately 60 minutes were spent on this discharge. KEEGAN MELO, MIKE [id number]/[facility] #: [id number] [facility]Dutch
== END 2017-12-14 19:30 | disposition home or self-care (01) | DRG 175 ==
LOC: ED 04:14 → MED 06:35
PROVIDERS: ADMIT Internal Medicine; ATTEND Student in an Organized Health Care Education/Training Program
DX: I26.99 Other pulmonary embolism without acute cor pulmonale (principal); J18.9 Pneumonia, unspecified organism; J90 Pleural effusion, not elsewhere classified; N39.0 Urinary tract infection, site not specified; J45.909 Unspecified asthma, uncomplicated; I10 Essential (primary) hypertension; K57.30 Diverticulosis of large intestine without perforation or abscess without bleeding; R07.9 Chest pain, unspecified; G47.33 Obstructive sleep apnea (adult) (pediatric); R09.02 Hypoxemia; Z79.899 Other long term (current) drug therapy; Z91.011 Allergy to milk products; Z88.5 Allergy status to narcotic agent; Z88.2 Allergy status to sulfonamides; Z88.8 Allergy status to other drugs, medicaments and biological substances; Z91.018 Allergy to other foods; F32.9 Major depressive disorder, single episode, unspecified; K21.9 Gastro-esophageal reflux disease without esophagitis
CPT/HCPCS: 36415; 71045; 71275; 80048; 80053; 81003; 81015; 83605; 83615; 83735; 83880; 84100; 84484; 85025; 85610; 86140; 87040; 87086; 93005; 93306; 93970; 94640; 94760; 99284; A9270-GY; J1650; J1885; J2405; J3010; Q9967